=== PATIENT | male | born 1980 | race Caucasian/White ===

== ENCOUNTER 2017-11-27 09:53 | Emergency (ER) | payer OTHER ==
[~2017-11-27] VITALS: Ht 162.6 cm; Wt 71.8 kg
[~2017-11-27 09:53] MED LIST: ATORVASTATIN PO; DIVA500T35 PO; GEMF600T3 PO; INSLAN; LACT10SO34 PR; METF500T4 PO; OLAN10TA3 PO; PIOG15TA6 PO; SIMV5TAB6 PO
[2017-11-27] MEDS ORDERED: CETI-290 PO (10:19)
[2017-11-27] MEDS ORDERED: HALO5 PO (10:19)
[2017-11-27] MEDS ORDERED: INSNOV SQ (10:19)
[2017-11-27] MEDS ORDERED: BENZ1TAB10 PO (10:19)
[2017-11-27] MEDS ORDERED: CARB200T6 PO (10:19)
[2017-11-27] MEDS ORDERED: HYDR-309 PO (10:19)
[2017-11-27] MEDS ORDERED: CHLO100T24 PO (10:19)
[2017-11-27] MEDS ORDERED: QUET200T PO (10:19)
[2017-11-27] MEDS ORDERED: ENOX30DI5 SQ (10:19)
[2017-11-27 10:23] LABS: GLUCOSE,POINT OF CARE 145 MG/DL (70-110)
[2017-11-27 10:46] LABS: BASOPHILS % (AUTO) 0.9 % (0.0-2.0); EOSINOPHILS % (AUTO) 1.3 % (1.0-6.0); HEMATOCRIT 28.7 % (41-53); HEMOGLOBIN 9.3 g/dL (13.5-17.5); LYMPHOCYTES # (AUTO) 1.4 K/uL (1.0-4.8); LYMPHOCYTES % (AUTO) 24.3 % (22.0-44.0); MEAN CORPUSCULAR HEMOGLOBIN 25.6 pg (26.0-34.0); MEAN CORPUSCULAR HGB CONC 32.6 G/dL (31.0-37.0); MEAN CORPUSCULAR VOLUME 79 fL (80-100); MONOCYTES # (AUTO) 0.7 K/uL (0.1-1.0); MONOCYTES % (AUTO) 11.8 % (2.0-9.0); NEUTROPHILS # (AUTO) 3.6 K/uL (1.8-7.7); NEUTROPHILS % (AUTO) 61.7 % (40.0-70.0); PLATELET COUNT (AUTO) 278 K/uL (150-450); RED BLOOD CELL COUNT(AUTO) 3.65 MIL/uL (4.50-5.90); RED CELL DISTRIBUTION WIDTH 13.7 % (11.5-14.5)
[2017-11-27 10:55] LABS: ANION GAP 7 mmol/L (8-16); CALCIUM, TOTAL 9.1 mg/dL (8.8-10.5); CARBON DIOXIDE 31 mmol/L (22-29); CHLORIDE 98 mmol/L (98-107); CREATININE 0.74 mg/dL (0.60-1.30); GLOMERULAR FILTR. RATE CALC > 60 mL/min (>60); GLUCOSE,RANDOM 132 mg/dL (70-110); POTASSIUM 3.7 mmol/L (3.5-5.1); SODIUM SERUM 136 mmol/L (136-145); UREA NITROGEN, BLOOD 15 mg/dL (7-18)
[2017-11-27 11:02] LABS: ALANINE AMINOTRANSFERASE 75 U/L (12-78); ALBUMIN 2.8 g/dL (3.4-5.0); ALKALINE PHOSPHATASE 120 U/L (46-116); ASPARTATE AMINOTRANSFERASE 25 U/L (15-37); BILIRUBIN,TOTAL 0.2 mg/dL (0.1-1.0); TOTAL PROTEIN, SERUM 7.7 g/dL (6.4-8.2)
[2017-11-27 13:37] VITALS: BP 121/69
== END 2017-11-27 13:55 | disposition home or self-care (01) ==
LOC: EMS 09:55
DX: F69 Unspecified disorder of adult personality and behavior (principal); E11.9 Type 2 diabetes mellitus without complications; Z79.4 Long term (current) use of insulin; Z79.899 Other long term (current) drug therapy
CPT/HCPCS: 36415; 80053; 82962; 85025; 99284; G0480

== ENCOUNTER 2017-12-04 09:56 | Emergency (ER) | payer OTHER ==
[~2017-12-04] VITALS: Ht 165.1 cm; Wt 77.3 kg
[~2017-12-04 09:56] MED LIST changes: +BENZ1TAB10 PO; +CARB200T6 PO; +CETI-290 PO; +CHLO100T24 PO; +ENOX30DI5 SQ; -GEMF600T3 PO; +HALO5 PO; +HYDR-309 PO; +INSNOV SQ; -METF500T4 PO; -PIOG15TA6 PO; +QUET200T PO; -SIMV5TAB6 PO
[2017-12-04 10:12] LABS: GLUCOSE,POINT OF CARE 122 MG/DL (70-110)
[2017-12-04] MEDS ORDERED: LORazepam 2 MG/ML VIAL IM ONE (10:15)
[2017-12-04 10:50] LABS: BASOPHILS % (AUTO) 0.9 % (0.0-2.0); EOSINOPHILS % (AUTO) 2.3 % (1.0-6.0); HEMATOCRIT 33.7 % (41-53); HEMOGLOBIN 10.9 g/dL (13.5-17.5); LYMPHOCYTES # (AUTO) 1.6 K/uL (1.0-4.8); LYMPHOCYTES % (AUTO) 29.9 % (22.0-44.0); MEAN CORPUSCULAR HEMOGLOBIN 25.7 pg (26.0-34.0); MEAN CORPUSCULAR HGB CONC 32.3 G/dL (31.0-37.0); MEAN CORPUSCULAR VOLUME 80 fL (80-100); MONOCYTES # (AUTO) 0.6 K/uL (0.1-1.0); MONOCYTES % (AUTO) 11.4 % (2.0-9.0); NEUTROPHILS % (AUTO) 55.5 % (40.0-70.0); PLATELET COUNT (AUTO) 333 K/uL (150-450); RED BLOOD CELL COUNT(AUTO) 4.24 MIL/uL (4.50-5.90); RED CELL DISTRIBUTION WIDTH 15.8 % (11.5-14.5)
[2017-12-04 11:00] LABS: ANION GAP 8 mmol/L (8-16); CALCIUM, TOTAL 9.6 mg/dL (8.8-10.5); CARBON DIOXIDE 29 mmol/L (22-29); CHLORIDE 101 mmol/L (98-107); CREATININE 0.77 mg/dL (0.60-1.30); GLOMERULAR FILTR. RATE CALC > 60 mL/min (>60); GLUCOSE,RANDOM 141 mg/dL (70-110); POTASSIUM 3.7 mmol/L (3.5-5.1); SODIUM SERUM 138 mmol/L (136-145); UREA NITROGEN, BLOOD 14 mg/dL (7-18)
[2017-12-04 11:06] LABS: ALANINE AMINOTRANSFERASE 51 U/L (12-78); ALBUMIN 3.3 g/dL (3.4-5.0); ALKALINE PHOSPHATASE 122 U/L (46-116); ASPARTATE AMINOTRANSFERASE 23 U/L (15-37); BILIRUBIN,TOTAL 0.3 mg/dL (0.1-1.0); TOTAL PROTEIN, SERUM 8.2 g/dL (6.4-8.2)
[2017-12-04] MEDS ORDERED: DiphenhydrAMINE HCL 50 MG/ML VIAL IM ONE (11:45)
[2017-12-04] MEDS ORDERED: HALOPERIDOL LACTATE 5 MG/ML VIAL IM ONE (11:45)
[2017-12-04 12:11] VITALS: BP 122/71
== END 2017-12-04 12:17 | disposition home or self-care (01) ==
LOC: EMS 09:59
DX: R45.1 Restlessness and agitation (principal); E11.9 Type 2 diabetes mellitus without complications; Z79.4 Long term (current) use of insulin
CPT/HCPCS: 36415; 80053; 82962; 85025; 96372; 99284; G0480; J1200; J1630; J2060

== ENCOUNTER 2017-12-04 15:22 | Emergency (ER) | payer OTHER ==
[~2017-12-04] VITALS: Ht 167.6 cm; Wt 75.0 kg
[2017-12-04 15:47] LABS: GLUCOSE,POINT OF CARE 144 MG/DL (70-110)
[2017-12-04] MEDS ORDERED: ZIPRASIDONE MESYLATE 20 MG/VIAL IM ONE (16:45)
[2017-12-04] MEDS ORDERED: LORazepam 2 MG/ML VIAL IM ONE (17:45)
[2017-12-04 18:20] LABS: APPEARANCE,URINE CLEAR (CLEAR); GLUCOSE, URINE (UA) NEGATIVE (NEGATIVE); KETONES,URINE NEGATIVE (NEGATIVE); LEUKOCYTE ESTERASE ,URINE NEGATIVE (NEGATIVE); NITRATE,URINE NEGATIVE (NEGATIVE); OCCULT BLOOD,URINE NEGATIVE (NEGATIVE); PH,URINE 6.5 (5.0-8.0); PROTEIN,URINE TRACE (NEGATIVE)
[2017-12-04 18:37] VITALS: BP 125/98
[2017-12-04 18:37] LABS: BILIRUBIN,URINE PRELIM. POSITIVE (NEGATIVE)
== END 2017-12-04 19:15 | disposition home or self-care (01) ==
LOC: EMS 15:24
DX: R45.1 Restlessness and agitation (principal); R62.50 Unspecified lack of expected normal physiological development in childhood; E11.9 Type 2 diabetes mellitus without complications; Z79.4 Long term (current) use of insulin; Z79.899 Other long term (current) drug therapy
CPT/HCPCS: 81003; 82962; 96372; 99283; J3486